=== PATIENT | male | born 2000 | race Caucasian/White ===

== ENCOUNTER 2018-01-30 14:52 | Emergency (ER) | payer OTHER ==
[~2018-01-30] VITALS: Ht 172.7 cm; Wt 73.9 kg
[2018-01-30 15:30] VITALS: BP 101/62
[2018-01-30] MEDS ORDERED: LIDOCAINE 1% (LOCAL ANESTH.) PF 5ml SDV IJ ONE (15:45)
== END 2018-01-30 16:25 | disposition home or self-care (01) ==
LOC: ER 14:56
DX: S61.211A Laceration without foreign body of left index finger without damage to nail, initial encounter (principal); W26.8XXA Contact with other sharp object(s), not elsewhere classified, initial encounter; Y93.89 Activity, other specified; Y92.89 Other specified places as the place of occurrence of the external cause; Y99.8 Other external cause status
CPT/HCPCS: 12002; 73140